=== PATIENT | male | born 1955 | race Hispanic/Latino ===

== ENCOUNTER 2023-05-13 09:21 | Day surgery (SDC) | payer OTHER ==
[~2023-05-13] VITALS: Ht 170.2 cm; Wt 99.8 kg
[2023-05-13 10:00] VITALS: BP 130/85; PULSE 77; RESP 22
[2023-05-13] MEDS ORDERED: PROPOFOL 10 MG/ML 20ML VIAL IV ONE (11:23)
[2023-05-13 11:50] VITALS: BP 113/73; PULSE 68; RESP 17
[2023-05-13 11:55] VITALS: BP 109/68; PULSE 70; RESP 15
[2023-05-13 12:00] VITALS: BP 118/79; PULSE 75; RESP 16
== END 2023-05-13 12:20 | disposition home or self-care (01) ==
LOC: ENDO 09:21 → DAH 09:21 → ENDO 12:20
PROVIDERS: ATTEND Urology
DX: Z12.11 Encounter for screening for malignant neoplasm of colon (principal); R14.0 Abdominal distension (gaseous); D12.5 Benign neoplasm of sigmoid colon; K29.50 Unspecified chronic gastritis without bleeding; K44.9 Diaphragmatic hernia without obstruction or gangrene; K59.04 Chronic idiopathic constipation; E66.01 Morbid (severe) obesity due to excess calories; N40.0 Benign prostatic hyperplasia without lower urinary tract symptoms; Z80.0 Family history of malignant neoplasm of digestive organs; Z68.41 Body mass index [BMI] 40.0-44.9, adult; Z79.899 Other long term (current) drug therapy
CPT/HCPCS: 43239; 45385; J2704; A4620; A4215 ×2; A4223; A7002; A4222; A4221; A4663; A4216; J7030; A4606; J3490